=== PATIENT | male | born 1980 | race Hispanic/Latino ===

== ENCOUNTER 2018-01-14 14:56 | Emergency (ER) | payer SELFPAY ==
--- NOTE | 2018-01-14 15:24 | RAD ---
RIGHT FOOT 3 VIEWS: Date: 01/14/18 HISTORY: Injury, pain in right foot, in first 3 toes, laceration to 2nd toe. FINDINGS/IMPRESSION: There is a small bony density at the medial aspect of the distal phalanx of the second toe, suspiciou s for an avulsion fracture. No radiopaque foreign body is identified. POS: OFF
[2018-01-14] MEDS ORDERED: HYDROcodone/Acetaminophen 10/325 mg Tablet ONE (15:29)
[2018-01-14] MEDS ORDERED: Adacel (T-DAP) 0.5 ML VIAL ONE (15:30)
== END 2018-01-14 16:00 | disposition home or self-care (01) ==
LOC: SCSER 14:56
DX: S92.531A Displaced fracture of distal phalanx of right lesser toe(s), initial encounter for closed fracture (principal); F17.210 Nicotine dependence, cigarettes, uncomplicated; Z23 Encounter for immunization; W20.8XXA Other cause of strike by thrown, projected or falling object, initial encounter
CPT/HCPCS: 90471; 90715